=== PATIENT | male | born 1965 | race Caucasian/White ===

== ENCOUNTER 2021-09-08 10:03 | Emergency (ER) | payer MEDICAID, SELFPAY ==
[2021-09-08 10:06] VITALS: BP 194/109; PULSE 91; RESP 17; TEMP 36.5; O2SAT 98
--- NOTE | 2021-09-08 10:22 | ED.GENADUL_ITS ---
Discharge Plan Disposition Patient Disposition: HOME Condition: Stable Discharge Details Clinical Impression: Pain, dental, Right facial swelling Primary Care Provider: Unknown,Unknown ED Provider: Cathie Garcia Home Meds and New Rx's Prescriptions: New amoxicillin-pot clavulanate 875-125 mg tablet 1 tab PO BID 10 Days Qty: 20 0RF Rx Instructions: Take twice daily with food Discharge Instructions Additional Instructions: Take the antibiotic twice daily as directed. Warm compresses to the side of your face, mild massage. Practice good oral hygiene. Rinse out your mouth after eating or drinking anything. Try to stop smoking. Follow-up with ear nose and throat if the swelling gets any bigger or does not go down within the next 1 to 2 weeks. Use the topical antiseptic gel up to 3 times daily as needed. Follow up with primary care provider in 3-5 days. Return to ED sooner if any worsening fever, feeling sicker at any time, or concerns. Increase oral fluids. Please take Tylenol or Ibuprofen with food every 4-6 hours as needed for pain and swelling. You do need to see a dentist as soon as possible. Referrals: Griffin Blackmon MD [ [facility] STAFF PHYSICIAN] - 1 week (Possible parotitis, versus dental abscess) Discharge Data Discharge Date/Time-TO BE ENTERED AT DEPARTURE: 09/08/21 10:40 Medical Decision Making 56-year-old male presents to the ER with chief complaint of right lower cheek and jaw swelling which has been ongoing for the last 2 days. He reports that there was a broken tooth that he bites down on a hard piece of candy. Swelling started then. He has been taking Tylenol with little to no relief. He is a smoker. He has no known drug allergies. He has been rinsing with hydrogen peroxide does not really help. He denies any fever or chills but does report sweats from the pain. He does not have a primary care provider. No clear dental abscess we will give Augmentin and benzocaine topical gel I did discuss with patient follow-up care for dentist and/or ENT if swelling increases. I did discuss strict return instructions to the ER. Patient placed on a care management list for PCP establishment and ENT follow-up if needed. We will give dental resources to patient. Differential diagnosis includes but not limited to dental abscess, parotitiditis, siloadendenitis HPI General Mode of arrival: ambulatory . Date/Time Provider Initiated Documentation: 09/08/21 10:04 . Limitations to Documentation: no limitations . Information obtained by: patient . HPI Narrative: 56-year-old male presents to the ER with chief complaint of right lower cheek and jaw swelling which has been ongoing for the last 2 days. He reports that there was a broken tooth that he bites down on a hard piece of candy. Swelling started then. He has been taking Tylenol with little to no relief. He is a smoker. He has no known drug allergies. He has been rinsing with hydrogen peroxide does not really help. He denies any fever or chills but does report sweats from the pain. He does not have a primary care provider. Related Data Home Medications Medication Instructions Recorded Confirmed amoxicillin 875 mg-potassium 1 tab PO BID 10 days #20 tabs 09/08/21 clavulanate 125 mg tablet Previous Rx's Medication Instructions Recorded amoxicillin 875 mg-potassium 1 tab PO BID 10 days #20 tabs 09/08/21 clavulanate 125 mg tablet Allergies Allergy/AdvReac Type Severity Reaction Status Date / Time No Known Allergies Allergy Unverified 09/08/21 10:10 General Stated Complaint: DentalOral DINA: 4 Review of Systems All systems reviewed & are unremarkable except as noted in HPI and below Constitutional Constitutional: Denies body ache(s), Reports excessive sweating and Denies headache(s) ENT Ears, Nose, Mouth, and Throat: Reports as per HPI, Denies otalgia, Reports facial pain and Denies headache(s) Neurologic Neurologic: Denies headache(s) Endocrine Endocrine: Reports excessive sweating [facility] All Active Problems (Updated 09/08/21 @ 10:35 by Cathie Garcia) Pain, dental (Acute) Right facial swelling (Acute) Social History Smoking/Tobacco Use Status: Current every day Tobacco Type: cigarettes Smoking risk assessment performed?: Yes Drug use: Rarely Substance use type: marijuana Do you feel safe at home: Yes Do you feel safe in your relationship?: Yes Exam Const General: cooperative, healthy appearing and comfortable Nutritional Appearance: average body habitus Orientation: alert, awake and oriented x3 Other: Mildly diaphoretic HENMT Head: normal to inspection Ears: hearing grossly normal bilaterally and external ears normal General nose exam: external nose normal and nares normal Face and sinus: edema Face images: 1. Swelling noted to right mandible, multiple poor dentition and broken teeth. No significant drainage noted intraorally. Posterior oropharynx within normal limits no exudate no erythema uvula is midline. Patient is speaking in clear voice. No transudate noted around the swelling. Mouth: breath no malodorous and no trismus Teeth and gingiva: poor dentition Course Vital Signs Vital signs: Vital Signs Temperature 36.5 C 09/08/21 10:06 Pulse 91 H 09/08/21 10:06 Respiratory Rate 17 09/08/21 10:06 Blood Pressure 194/109 H 09/08/21 10:06 Pulse Oximetry 98 09/08/21 10:06 Temperature 36.5 C 09/08/21 10:06 Temperature Source Temporal Artery Scan 09/08/21 10:06 Pulse 91 H 09/08/21 10:06 Respiratory Rate 17 09/08/21 10:06 Respiratory Effort Non-Labored 09/08/21 10:08 Blood Pressure 194/109 H 09/08/21 10:06 Blood Pressure Position Sitting 09/08/21 10:06 Pulse Oximetry 98 09/08/21 10:06 Oxygen Delivery Method Room Air 09/08/21 10:06 Oxygen Flow Rate 0 09/08/21 10:06 Pain Level 8 09/08/21 10:11 PAWSS Have you Been Recently Intoxicated or Drunk Within the Last 30 days?: No Have you Ever Experienced Previous Episodes of Alcohol Withdrawal?: No Have you ever Experienced Withdrawal Seizures?: No Have you ever Experienced Delirium Tremens(DT)s?: No Have you ever undergone Alcohol Rehabilitation Treatment (i.e, inpt ot outpatient treatment programs)?: Yes Have you ever Experienced Blackouts?: Yes Have you ever Combined Alcohol with other Downers within the last 90 days?: No Have you ever Combined Alcohol with any other Substance of Abuse during the last 90 days?: No Result: 2
--- NOTE | 2021-09-08 10:31 | NUR.NOTE ---
Nursing Note: Referral given to Care Management needs PCP, establish care, routine follow up. Referral faxed to [facility] ENT for right facial swelling, 1 to 2 weeks. Tanwy Li
[2021-09-08] MEDS: Benzocaine 20% Gel 30 GM JAR MM (10:33)
[2021-09-08] MEDS: Amoxicillin 875/Clav. 125 TAB PO (10:33)
[2021-09-08 10:42] VITALS: BP 184/102; PULSE 84; RESP 16; TEMP 36.5; O2SAT 97
--- NOTE | 2021-09-09 11:43 | PDOC.ERCMACT ---
- If Service Date Differs Date of service: 09/09/21 Time of Service: 11:43 Care Management Activity Note Nehemiah was seen in the ED for dental pain and right facial swelling. At the request of ED provider, CM coordinates a referral to Jessika Hernandez MD, of [facility], on-call provider, to assist Nehemiah in obtaining a routine follow up and in establishing care with a PCP. He has Medicaid for insurance.
== END 2021-09-08 10:40 | disposition home or self-care (01) ==
PROVIDERS: Emergency Provider Registered Nurse Emergency
DX: R22.0 Localized swelling, mass and lump, head (principal); K08.89 Other specified disorders of teeth and supporting structures; F17.210 Nicotine dependence, cigarettes, uncomplicated
CPT/HCPCS: 99283

== ENCOUNTER 2022-11-28 09:01 | Emergency (ER) | payer MEDICAID, SELFPAY ==
--- NOTE | 2022-11-28 09:02 | W.ED.GENAD ---
Discharge Plan Disposition Patient Disposition: Home Discharge Details Clinical Impression: Elevated blood pressure reading with diagnosis of hypertension, Pain, dental, Luxation of tooth Primary Care Provider: Bri Dugan ED Provider: Dylan Hong Home Meds and New Rx's Prescriptions: New amoxicillin-pot clavulanate 875-125 mg tablet 1 tab PO BID 7 Days Qty: 14 0RF Continued telmisartan 20 mg tablet 20 mg PO DAILY Qty: 90 1RF Discharge Instructions Instructions: Toothache (ED) Additional Instructions: Please read all of the information that accompanies these instructions. You were seen in the emergency department for your dental pain. You are receiving an antibiotic that you should take as directed. Please schedule an appointment with your primary care provider later this week. Please return to the emergency department if develop worsening swelling fevers cannot breathe or cannot handle your secretions. Please call for a dentist next week. Your blood pressure was high. Please continue taking your home blood pressure medications. Medical Decision Making This is an overall very well-appearing normothermic and tachycardic 57-year-old male with acute dental pain and mild periapical swelling and tenderness concerning for periapical abscess and associated Ferris class I fracture. Given Ferris class I will advise routine follow-up with dentist. Patient does have moderate luxation of tooth #11 but no surrounding teeth which could be amenable for stabilization. As result will defer splinting. No pain or proportion to suggest necrotizing soft tissue infection. No brawny edema submentally to suggest Ludewig's angina. Patient does have exceedingly poor dentition. He does request that his teeth be pulled. I have advised that he follow-up with a dentist next week. No signs of erysipelas nor any cellulitis. No proptosis to suggest orbital cellulitis. Patient is handling his secretions so no indication for emergent airway intervention. I advised patient that he should take amoxicillin clavulanic acid as directed for the next week and return to the emergency department if he has any difficulty breathing or swallowing. We will proceed with empiric trial of expectant outpatient management with strict return indications. I have asked health pulling unit floorhand Kiana to provide the patient with a list of dentists to contact next week. I also asked health pulling unit floorhand Kiana to have the patient seen within the week by his primary care provider given his elevated blood pressure with a history of hypertension. He reports that he had taken his home antihypertensive medications this morning. Certainly his elevated blood pressure could be the result of pain however I would like his blood pressure to be rechecked within the week. HPI General Date/Time Provider Initiated Documentation: 11/28/22 09:02. HPI Narrative: This is a 57-year-old male with history of hypertension arriving via private vehicle to the emergency department in setting of dental pain. Patient reports that he chewed on a hard candy yesterday. He feels as if he chipped his upper tooth. He noted swelling this morning. Patient took acetaminophen yesterday with no relief. He notes a throbbing pain in his left cheek. He developed swelling overnight. He denies fevers shortness of breath chest pain nausea or vomiting. He took no medications today. He would like to have all of his teeth pulled. He does not have a dentist. Related Data Home Medications Medication Instructions Recorded Confirmed telmisartan 20 mg tablet 20 mg PO DAILY #90 tabs 08/10/22 11/28/22 amoxicillin 875 mg-potassium 1 tab PO BID 7 days #14 tabs 11/28/22 clavulanate 125 mg tablet Previous Rx's Medication Instructions Recorded telmisartan 20 mg tablet 20 mg PO DAILY #90 tabs 08/10/22 amoxicillin 875 mg-potassium 1 tab PO BID 7 days #14 tabs 11/28/22 clavulanate 125 mg tablet Allergies Allergy/AdvReac Type Severity Reaction Status Date / Time No Known Allergies Allergy Unverified 11/28/22 09:06 General DINA: 4 PFSH All Active Problems (Updated 11/28/22 @ 09:33 by Dylan Hong MD) Elevated blood pressure reading with diagnosis of hypertension (Acute) Pain, dental (Acute) Luxation of tooth (Acute) Elevated blood pressure reading (Acute) Family History (Updated 08/12/22 @ 14:07 by Josefina Wolfe) Mother , 68 Diabetes Father , 78 Heart disease Social History (Updated 08/12/22 @ 14:06 by Josefina Wolfe) Smoking/Tobacco Use Status: Current every day Tobacco Type: cigarettes Tobacco: How many years used: 20 Quit status: considering quitting Second Hand Exposure: Yes Smoking risk assessment performed?: Yes Alcohol Intake: current Alcohol Intake frequency: a few times a week Alcohol type: beer Drug use: Rarely Substance use type: marijuana Caregiver/Support person: No Household members: family Housing: house Communication Needs: None Pets and animals: No Sexually active: Yes Do you think of yourself as: straight/heterosexual How often do you talk on the phone with friends or family?: three or more times per week How often do you get together with friends or relatives?: three or more times per week How often do you attend temple or samaritan services?: decline to answer Do you belong to any clubs or organized social groups?: no Panel score (0-1 are the most socially isolated patients): 1 What type of physical activity do you participate in: none Frequency: does not exercise Paola/Uatsdin: No preference Special paola needs: No Seatbelt use: always Drive intox or ride w/intox pick up and delivery driver: No Do you feel safe at home: Yes Do you feel safe in your relationship?: Yes Exam Narrative Exam Narrative: General: Well-appearing in no acute distress speaking in complete sentences. Head: Normocephalic, atraumatic. Eye: Extraocular eye movements intact. No conjunctival injection. No scleral icterus. Ear, nose, mouth, throat: Exceedingly poor dentition with numerous missing teeth. Left maxillary incisor, tooth #11, is tender to percussion. On tooth #11 there is an Ferris class I fracture. There is minor laxity in this tooth. Surrounding teeth are missing. Patient does have mild luxation of tooth #11. Uvula midline. No signs of acute necrotizing ulcerative gingivitis. Neck: Trachea midline. Cardiovascular: Well-perfused distal extremities. Respiratory: Nonlabored respiration. Gastrointestinal: Nondistended abdomen. Musculoskeletal: No edema. Moving all 4 extremities spontaneously. Skin: Normal for age and race, grossly normal temperature and turgor. No acute rash. Neurologic: Alert and appropriate, no apparent acute deficits. Psychiatric: Mood and manner are appropriate. Grooming and personal hygiene are appropriate.
[2022-11-28 09:04] VITALS: BP 192/111; PULSE 89; RESP 18; TEMP 36.7; O2SAT 98
[2022-11-28] MEDS: Amoxicillin 875/Clav. 125 TAB PO (09:20)
[2022-11-28] MEDS: Acetaminophen 500 MG TAB 1000 MG PO (09:20)
[2022-11-28] MEDS: Ibuprofen 600 MG TAB PO (09:20)
--- NOTE | 2022-11-28 09:23 | NUR.NOTE ---
Referral made per Dr. Hong to follow up with PCP in one week for elevated blood pressure with a diagnosis of hypertension. Put the referral in the care management's box for follow up assistance.Nursing Note:
== END 2022-11-28 09:33 | disposition home or self-care (01) ==
PROVIDERS: Emergency Provider Emergency Medicine; PCP Nurse Practitioner Family
DX: R03.0 Elevated blood-pressure reading, without diagnosis of hypertension (principal); K08.89 Other specified disorders of teeth and supporting structures; S03.2XXA Dislocation of tooth, initial encounter; X58.XXXA Exposure to other specified factors, initial encounter
CPT/HCPCS: 99283; 99284